=== PATIENT | female | born 1960 | race Caucasian/White ===

== ENCOUNTER → 2018-11-21 08:08 | Outpatient (CLI) | payer MEDICAID ==
[2018-11-21 09:39] LABS: ALBUMIN 3.7 g/dL (3.4-5.0); BILIRUBIN - DIRECT 0.11 mg/dL (0.00-0.30); BILIRUBIN - INDIRECT 0.28 mg/dL (0.00-1.00); BILIRUBIN - TOTAL 0.39 mg/dL (0.2-1.3); PROTEIN - SERUM 7.2 g/dL (6.4-8.2)
== END | disposition home or self-care (01) ==
LOC: D.US 08:08
PROVIDERS: ATTEND Internal Medicine Gastroenterology
DX: K76.0 Fatty (change of) liver, not elsewhere classified (principal)

== ENCOUNTER → 2018-11-30 08:37 | Outpatient (CLI) | payer MEDICAID | END | disposition home or self-care (01) | LOC: D.LAB 08:37 | PROVIDERS: ATTEND Internal Medicine Gastroenterology | DX: K76.0 Fatty (change of) liver, not elsewhere classified (principal) ==

== ENCOUNTER 2019-01-13 13:28 | Emergency (ER) | payer MEDICAID ==
[~2019-01-13] VITALS: Ht 157.5 cm; Wt 88.2 kg
[2019-01-13 13:47] VITALS: Ht 157.5 cm; Wt 88.2 kg
[2019-01-13] MEDS ORDERED: NEURONTIN 300300 MG PO (13:50)
[2019-01-13] MEDS ORDERED: OMEPRAZOLE20 M1 PO (13:51)
[2019-01-13] MEDS ORDERED: ZANAFLEX2 M1 PO (13:51)
[2019-01-13] MEDS ORDERED: BUSPIRONE HCL7.5 MG PO (13:51)
[2019-01-13] MEDS ORDERED: MIRAPEX0.5 MG PO (13:51)
[2019-01-13] MEDS ORDERED: PERCOCET 5-3251 TAB PO (13:52)
[2019-01-13] MEDS ORDERED: DICLOFENAC SODI50 MG PO (13:52)
[2019-01-13] MEDS ORDERED: ATARAX 25 MG TA25 MG PO (13:53)
[2019-01-13 14:12] LABS: APPEARANCE CLEAR (CLEAR); BILIRUBIN NEGATIVE (NEGATIVE); COLOR YELLOW (YELLOW); GLUCOSE NEGATIVE (NEGATIVE); KETONE NEGATIVE (NEGATIVE); NITRITE NEGATIVE (NEGATIVE); PROTEIN NEGATIVE (NEGATIVE); SPECIFIC GRAVITY 1.025 (1.005-1.020); UROBILINOGEN NORMAL (NORMAL)
[2019-01-13 14:45] LABS: BASOPHILS 0.4 % (0-2); EOSINOPHILS 0.5 % (0-7); HEMATOCRIT 42.1 % (36.0-48.0); HEMOGLOBIN 14.3 g/dL (12-16); IMMATURE GRANULOCYTES 0.2 % (0-5); LYMPHOCYTES 39.1 % (15-50); MCH 32.1 pg (26.0-34.0); MCV 94.6 fL (80.0-100.0); MEAN PLATELET VOLUME 11.7 fL (7.4-10.4); MONOCYTES 6.4 % (2-11); NEUTROPHILS 53.4 % (40-80); PLATELET COUNT 151 10x3/uL (130-400); RBC 4.45 10x6/uL (4.00-5.40); WBC 8.1 10x3/uL (4.8-10.8)
[2019-01-13 14:57] LABS: ALBUMIN 3.8 g/dL (3.4-5.0); ALKALINE PHOSPHATASE 155 U/L (46-116); ALT (SGPT) 131 U/L (10-68); BILIRUBIN - TOTAL 0.31 mg/dL (0.2-1.3); CALC OSMOLALITY 286 mosm/kg (275-300); CARBON DIOXIDE 23.5 mmol/L (21.0-32.0); CHLORIDE - SERUM 107 mmol/L (98-107); CREATININE - SERUM 1.1 mg/dL (0.6-1.3); GLUCOSE 143 mg/dL (74-106); PROTEIN - SERUM 7.3 g/dL (6.4-8.2); SODIUM 142 mmol/L (136-145); UREA NITROGEN 17 mg/dL (7-18); eGFR NON AFRICAN AMERICAN 54 mL/min (90-120)
[2019-01-13 15:01] LABS: LIPASE 524 U/L (73-393)
[2019-01-13 15:02] LABS: TROPONIN-I < 0.017 ng/mL (0.000-0.060)
[2019-01-13 17:56] VITALS: BP 112/73
== END 2019-01-13 17:56 | disposition home or self-care (01) ==
LOC: D.ER 13:28
PROVIDERS: Family Medicine
DX: R10.9 Unspecified abdominal pain (principal); K57.10 Diverticulosis of small intestine without perforation or abscess without bleeding

== ENCOUNTER → 2019-01-30 10:45 | Outpatient (CLI) | payer MEDICAID ==
[2019-01-13 13:47] VITALS: BMI 35.5
[~2019-01-30 10:45] MED LIST: ATARAX 25 MG TA25 MG PO; BUSPIRONE HCL7.5 MG PO; DICLOFENAC SODI50 MG PO; MIRAPEX0.5 MG PO; NEURONTIN 300300 MG PO; OMEPRAZOLE20 M1 PO; PERCOCET 5-3251 TAB PO; ZANAFLEX2 M1 PO
== END | disposition home or self-care (01) ==
LOC: D.NM 10:45
PROVIDERS: ATTEND Internal Medicine Gastroenterology
DX: R10.9 Unspecified abdominal pain (principal); R11.2 Nausea with vomiting, unspecified

== ENCOUNTER → 2019-02-27 08:40 | Outpatient (CLI) | payer MEDICAID ==
[2019-01-13 13:47] VITALS: BMI 35.5
[2019-02-27 09:57] LABS: BASOPHILS 0.2 % (0-2); EOSINOPHILS 0.6 % (0-7); HEMATOCRIT 40.4 % (36.0-48.0); HEMOGLOBIN 13.4 g/dL (12-16); IMMATURE GRANULOCYTES 0.2 % (0-5); LYMPHOCYTES 40.9 % (15-50); MCHC 33.2 g/dL (31.0-37.0); MCV 96.4 fL (80.0-100.0); MEAN PLATELET VOLUME 11.8 fL (7.4-10.4); MONOCYTES 6.2 % (2-11); NEUTROPHILS 51.9 % (40-80); RBC 4.19 10x6/uL (4.00-5.40); RDW 13.3 % (11.5-14.5); WBC 4.8 10x3/uL (4.8-10.8)
[2019-02-27 10:05] LABS: INR 1.03 (0.85-1.17)
[2019-02-27 10:11] LABS: PLATELET COUNT 119 10x3/uL (130-400)
[2019-02-27 10:14] LABS: ALBUMIN 3.4 g/dL (3.4-5.0); ANION GAP 8.5 mmol/L (8-16); BILIRUBIN - DIRECT 0.08 mg/dL (0.00-0.30); BILIRUBIN - INDIRECT 0.34 mg/dL (0.00-1.00); BILIRUBIN - TOTAL 0.42 mg/dL (0.2-1.3); CALCIUM 9.1 mg/dL (8.5-10.1); CARBON DIOXIDE 25.4 mmol/L (21.0-32.0); CHOL - HDL RATIO 7.3 ratio (2.3-4.1); CREATININE - SERUM 0.9 mg/dL (0.6-1.3); LDL-HDL RATIO 4.3 ratio (1.5-3.5); POTASSIUM - SERUM 3.9 mmol/L (3.5-5.1)
[2019-02-28 11:10] LABS: HAPTOGLOBIN 74 mg/dL (34-200)
[2019-02-28 12:09] LABS: ANA REFLEX - DIRECT Negative (Negative)
[2019-02-28 15:09] LABS: HEPATITIS C ANTIBODY 0.2 (0.0-0.9)
[2019-03-01 15:10] LABS: MITOCHONDRIAL ANTIBODY <20.0 Units (0.0-20.0); SMOOTH MUSCLE ABS (ACTIN) 5 Units (0-19)
[2019-03-14 08:00] VITALS: BMI 36.1
== END | disposition home or self-care (01) ==
LOC: D.RAD 08:40
PROVIDERS: ATTEND Internal Medicine Gastroenterology
DX: K21.9 Gastro-esophageal reflux disease without esophagitis (principal); R11.0 Nausea; R10.84 Generalized abdominal pain; R74.8 Abnormal levels of other serum enzymes; K76.0 Fatty (change of) liver, not elsewhere classified

== ENCOUNTER 2019-03-14 06:56 | Outpatient (CLI) | payer MEDICAID ==
[~2019-03-14] VITALS: Ht 157.5 cm; Wt 89.5 kg
[2019-03-14 07:22] LABS: BASOPHILS 0.3 % (0-2); HEMATOCRIT 42.3 % (36.0-48.0); HEMOGLOBIN 14.3 g/dL (12-16); IMMATURE GRANULOCYTES 0.2 % (0-5); LYMPHOCYTES 34.7 % (15-50); MCH 32.4 pg (26.0-34.0); MCHC 33.8 g/dL (31.0-37.0); MCV 95.7 fL (80.0-100.0); MEAN PLATELET VOLUME 11.5 fL (7.4-10.4); MONOCYTES 6.5 % (2-11); NEUTROPHILS 57.3 % (40-80); PLATELET COUNT 135 10x3/uL (130-400); RBC 4.42 10x6/uL (4.00-5.40); RDW 13.1 % (11.5-14.5); WBC 5.9 10x3/uL (4.8-10.8)
[2019-03-14 07:37] LABS: ANION GAP 13.4 mmol/L (8-16); CALCIUM 9.5 mg/dL (8.5-10.1); CARBON DIOXIDE 24.7 mmol/L (21.0-32.0); CREATININE - SERUM 1.1 mg/dL (0.6-1.3); POTASSIUM - SERUM 4.1 mmol/L (3.5-5.1)
[2019-03-14 07:37] LABS: APTT 32.6 SECONDS (22.8-39.4); INR 1.04 (0.85-1.17); PROTIME 13.1 SECONDS (11.6-15.0)
[2019-03-14 08:00] VITALS: BP 124/39; Ht 157.5 cm; Wt 89.5 kg
--- NOTE | 2019-03-14 12:17 | NUR ---
PT REPORTS FEELING NAUSEATED AND WANTS TO VOMIT. CALLED [facility] GAVE VO OF ZOFRAN 4MG IV X1.
--- NOTE | 2019-03-14 12:36 | NUR ---
DC INSTRUCTIONS GIVEN TO PT/FAMILY. STATE UNDERSTANDING.
--- NOTE | 2019-03-14 13:15 | NUR ---
PT LEFT UNIT VIA WC AT 1315
== END 2019-03-14 13:15 | disposition home or self-care (01) ==
LOC: D.SP 06:56 → D.CT 10:00 → D.SP 10:00
PROVIDERS: Radiology Vascular & Interventional Radiology; ATTEND Internal Medicine Gastroenterology
DX: R94.5 Abnormal results of liver function studies (principal)

== ENCOUNTER → 2020-09-04 08:02 | Outpatient (CLI) | payer MEDICAID ==
[2019-03-14 08:00] VITALS: BMI 36.1
[2020-09-04 08:44] LABS: ALBUMIN 3.9 g/dL (3.4-5.0); BILIRUBIN - DIRECT 0.14 mg/dL (0.00-0.30); BILIRUBIN - INDIRECT 0.32 mg/dL (0.00-1.00); BILIRUBIN - TOTAL 0.46 mg/dL (0.2-1.3); PROTEIN - SERUM 7.5 g/dL (6.4-8.2)
== END | disposition home or self-care (01) ==
LOC: D.US 08:02
PROVIDERS: ATTEND Internal Medicine Gastroenterology
DX: K76.0 Fatty (change of) liver, not elsewhere classified (principal)